=== PATIENT | female | born 1950 | race Caucasian/White ===

== ENCOUNTER → 2023-11-26 10:53 | Outpatient (REF) | payer MEDICARE, OTHER, SELFPAY | LOC: HWRAD 10:53 | PROVIDERS: ATTENDING PHYSICIAN Nurse Practitioner; FAMILY PHYSICIAN Family Medicine | DX: N39.0 Urinary tract infection, site not specified (principal) | CPT/HCPCS: 76770; 76856 ==

== ENCOUNTER → 2024-02-10 11:11 | Outpatient (REF) | payer MEDICARE, BC, SELFPAY | LOC: HWRCS 11:11 | PROVIDERS: ATTENDING PHYSICIAN Internal Medicine Cardiovascular Disease | DX: I10 Essential (primary) hypertension (principal); R94.31 Abnormal electrocardiogram [ECG] [EKG] | CPT/HCPCS: 93306 ==

== ENCOUNTER → 2024-03-02 07:02 | Outpatient (REF) | payer MEDICARE, BC, SELFPAY | LOC: RAD 07:02 | PROVIDERS: ATTENDING PHYSICIAN Internal Medicine Cardiovascular Disease; FAMILY PHYSICIAN Nurse Practitioner Family | DX: R09.89 Other specified symptoms and signs involving the circulatory and respiratory systems (principal); E78.00 Pure hypercholesterolemia, unspecified | CPT/HCPCS: 93880 ==